=== PATIENT | male | born 1935 | race Hispanic/Latino ===

== ENCOUNTER 2017-09-09 08:54 | Day surgery (SDC) | payer MEDICARE, OTHER ==
[2017-08-20 10:52] VITALS: BMI 22.6
[2017-09-09] MEDS ORDERED: Bupivacaine 0.5% Inj(30mL) ONE (09:33)
[2017-09-09] MEDS ORDERED: Etomidate 20 mg/10ml Inj IV ONE (11:05)
[2017-09-09] MEDS ORDERED: Bupivacaine Liposomal Inj 20 ml ONE (11:08)
[2017-09-09] MEDS ORDERED: ePHEDrine 50 mg/ml Inj ONE (11:28)
[2017-09-09] MEDS ORDERED: Bupivacaine 0.5% Inj(30mL) IJ ONE ×2 (11:30)
[2017-09-09] MEDS ORDERED: Bupivacaine Liposomal Inj 20 ml INJ ONE (12:16)
[2017-09-09] MEDS ORDERED: Neostigmine Methylsulfate 3mg/3ml Syringe IV ONE (12:28)
[2017-09-09] MEDS ORDERED: HYDROmorphone 0.5 mg/0.5 ml ISec IVP PRN (12:40)
--- NOTE | 2017-09-09 12:44 | PCM.SURG1 ---
Surgeon's Initial Post Op Note - Surgeon's Notes Surgeon: Dr. Harris Apprentice Plumber: Marisabel Lizarraga, PGY 2, Guillermina Schwarz PGY 1, Odin Montero, MS3 Type of Anesthesia: General IV Pre-Operative Diagnosis: Right inguinal Hernia Operative Findings: right direct inguinal hernia Post-Operative Diagnosis: right direct inguinal hernia Operation Performed: right direct inguinal herniorraphy without mesh Specimen/Specimens Removed: none Estimated Blood Loss: EBL {In ML}: 5 Blood Products Given: N/A Drains Used: No Drains Post-Op Condition: Good Date of Surgery/Procedure: 09/09/17 Time of Surgery/Procedure: 10:20
[2017-09-09] MEDS ORDERED: Lactated Ringer's 1,000 ML IV SCH (12:45)
[2017-09-09 13:10] VITALS: PULSE 62
[2017-09-09 13:39] VITALS: BP 161/77; RESP 18; TEMP 97; O2SAT 98
--- NOTE | 2017-09-19 17:47 | OP ---
PROCEDURE DATE: 09/09/2017 SURGEON: Zenon Harris MD. BIOM[employer]ICAL [employer]INEER[employer]: Marisabel Lizarraga DO, PGY2 SECOND STORES LABORER: Guillermina Schwarz DO, PGY1 THIRD STORES LABORER: aMyda Montero, medical student III. ANESTHESIA ADMINISTERED BY: Juan Jiménez MD. TYPE OF ANESTHESIA: General endotracheal - Exparel 20 mL. PREOPERATIVE DIAGNOSES: 1. Reducible right inguinal hernia. 2. Chronic renal insufficiency. 3. Bilateral detached retinas. POSTOPERATIVE DIAGNOSIS: Direct inguinal hernia. PROCEDURES: 1. Right Gaston ligament inguinal herniorrhaphy. 2. Infiltration with Exparel 72-hour anesthetic. OPERATIVE INDICATION: The patient is an 82-year-old male with a long-term history of a right-sided inguinal bulging that has extended into the scrotum, but reduces easily and it is becoming more symptomatic recently and the patient has finally agreed to undergo inguinal herniorrhaphy. Risks, benefits, and alternatives with their anticipated outcomes were discussed with the patient and he signs the informed consent. OPERATIVE NOTE: The patient was brought to the operating room from the Same Day Surgery Unit. The correct side has been marked and initialed. The patient was identified by his wristband and underwent time-out procedure. Following time-out, the patient was placed on the table in a supine manner and underwent the induction of general anesthesia with the insertion of an endotracheal tube and sequential compression devices were placed on his lower extremities. The lower abdomen was electrically clipped, prepped with Hibiclens and chlorhexidine preparation, and the patient was then aseptically draped. A transverse incision was made over the right inguinal canal along the lines of Danilo. Sharp dissection was carried down through the subcutaneous tissues to the external oblique aponeurosis below and hemostasis was contained with electrocoagulating cautery. The external oblique was incised from the external ring towards the anterior superior spine. The cord was then mobilized and elevated on a Hilliard tape. The inguinal fluorine is reduced at this point, but extremely bulging on the pressure from the intra-abdominal content and the transversalis fascia was incised and it was a surprise to the operating team that this was not an indirect inguinal hernia, but an entire floor defect. Due to the patient's diminutive size and the space available, it was elected to do a Gaston ligament repair with 2-0 Prolene continuous suture from the Gaston ligament to the transversalis fascia and the posterior internal oblique conjoint tendon, running back out to the internal ring and then continuing back towards the pubis with a second layer closure, approximating the shelving portion of Poupart ligament to the conjoint tendon. This area was infiltrated with Exparel. The cord was returned to its normal position and the external oblique closed with running 2-0 Polysorb absorbable suture. The subcutaneous and subcuticular closure of 3-0 Polysorb suture was employed. The skin was then closed with AutoSuture skin latrell and Exparel was used to completely block the L1-L2 takeoff just medial to the anterior superior spine and the genitofemoral nerve just below the pubis and the skin incision itself. A dry dressing was applied. The right testicle was gently placed on traction to straighten the cord structures and the inguinal canal, and the patient was then awakened, extubated, and transported to the recovery room in a satisfactory condition. Sponge, instrument, and suture count were verified as correct at the end of the procedure. Estimated blood loss during this procedure was less than 15 mL of blood in total. This dictation will be electronically signed without being read. The surgical assistants were extremely helpful during the entire procedure from beginning to end in obtaining adequate exploration and in participating in the entire procedure. Zenon Harris MD
== END 2017-09-09 15:30 | disposition home or self-care (01) ==
LOC: SDS 08:54
PROVIDERS: ATTEND Surgery
DX: K40.90 Unilateral inguinal hernia, without obstruction or gangrene, not specified as recurrent (principal); N18.9 Chronic kidney disease, unspecified
CPT/HCPCS: 36415; 49505; 85730; J0690; J1170; J2001; J2405; J2710; J2765; J3010; J7120 ×2